=== PATIENT | female | born 1950 | race Caucasian/White ===

== ENCOUNTER 2016-10-09 11:00 | Emergency (ER) | payer MEDICARE, OTHER ==
[~2016-10-09] VITALS: Ht 175.3 cm; Wt 92.0 kg
[~2016-10-09 11:00] MED LIST: ALL220TA PO; LASI20TA PO; LEXA10TA PO; LIPI80TA16 PO; VITA100T65 PO; VITA400C28 PO
[2016-10-09 11:02] VITALS: BP 136/84; PULSE 82; RESP 14; TEMP 97.9; O2SAT 98
[2016-10-09] MEDS ORDERED: FISHCAP4 PO (16:18)
[2016-10-09] MEDS ORDERED: ASPI1TAB69 PO (16:18)
--- NOTE | 2016-10-09 16:23 | PD ---
HPI Chief Complaint: Abdominal Pain Time Seen by Provider: 16:23 Travel History International Travel<30 days: No Contact w/Intl Traveler<30days: No Traveled to known affect area: No History of Present Illness HPI 66-year-old female with history of HLD, spinal fusion presents to the ED for evaluation of 8 week history of right groin and hip pain. Gradual onset. Worsened over the last 3 days. Rated 4/10 at rest, 8/10 with ambulation. She denies anorexia, nausea, vomiting, fever, chills, changes in bowel habits, BRBPR. She can not identify no acute injury to the hip. States she is otherwise healthy. PFSH Past Medical History Hx Anticoagulant Therapy: No Arthritis: Yes Blood Disorders: No Cancer: No Cardiovascular Problems: No Chemotherapy: No Cerebrovascular Accident: No Diabetes: No Endocrine: No Genitourinary: No Immune Disorder: No Musculoskeletal: Yes Neurologic: Yes Psychiatric: No Reproductive: No Respiratory: No Past Surgical History Abdominal Surgery: Yes (1959? APPENDECTOMY) [facility]necologic [facility]: Yes [facility] Hysterectomy: Yes Oral Surgery: Yes (1963 TONSILECTOMY) Pacemaker: No Social History Alcohol Use: Yes (DAILY WINE) Tobacco Use: No Substance Use: No Allergies-Medications (Allergen,Severity, Reaction): Coded Allergies: Penicillin (Verified Allergy, Severe, HIVES, 10/09/16) Codeine (Verified Allergy, Mild, NAUSEA AND VOMITING, 10/09/16) Reported Meds & Prescriptions Reported Meds & Active Scripts Active Lortab (Hydrocodone-Acetaminophen) 5-325 Mg Tab 1 Tab PO Q6H PRN Ibuprofen 600 Mg Tab 600 Mg PO TID Reported Aspirin 81 Mg Tabdr 81 Mg PO DAILY Fish Oil + D3 (Fish Oil-Cholecalciferol) 1,200-1,000 Mg-Unit Cap 1 Cap PO DAILY Vitamin D (Cholecalciferol) 400 Unit Tab 400 Unit PO Lexapro (Escitalopram Oxalate) 10 Mg Tab 10 Mg PO DAILY Lipitor (Atorvastatin Calcium) 80 Mg Tab 80 Mg PO HS Review of Systems Except as stated in HPI: all other systems reviewed are Neg Physical Exam Narrative GENERAL: Well-nourished, well-developed white female in no acute distress.. SKIN: Warm and dry. HEAD: Normocephalic. EYES: No scleral icterus. No injection or drainage. NECK: Supple, trachea midline. No JVD or lymphadenopathy. CARDIOVASCULAR: Regular rate and rhythm without murmurs, gallops, or rubs. RESPIRATORY: Breath sounds clear and equal bilaterally. No accessory muscle use. GASTROINTESTINAL: Abdomen soft, non-tender, nondistended. Active bowel sounds. No suprapubic tenderness. MUSCULOSKELETAL: No cyanosis, or edema. Mild tenderness to palpation over the lateral aspect of the hip and anterior aspect of the groin. BACK: Nontender without obvious deformity. No CVA tenderness. Data Data Last Documented VS Vital Signs Date Time Temp Pulse Resp B/P Pulse Ox O2 Delivery O2 Flow Rate FiO2 10/09/16 18:17 20 10/09/16 11:02 97.9 82 136/84 98 Room Air Orders Hip, Uni(Ap&Lat) W Ap Pelvis (10/09/16 16:36) Ketorolac Inj (Toradol Inj) (10/09/16 16:45) Ct Abd/Pel W/O Iv Contrast (10/09/16 17:35) MDM Medical Decision Making Medical Screen Exam Complete: Yes Emergency Medical Condition: Yes Differential Diagnosis Osteoarthritis versus hip fracture versus inguinal hernia versus other Narrative Course 66-year-old female with history of HLD, spinal fusion presents to the ED for evaluation of 8 week history of right groin and hip pain. Gradual onset. Worsened over the last 3 days. Rated 4/10 at rest, 8/10 with ambulation. She denies anorexia, nausea, vomiting, fever, chills, changes in bowel habits, BRBPR. Vitals reviewed. Physical exam reveals mild tenderness of the anterior lateral aspect of the hip and the right groin. The abdominal exam is benign. I suspect this may be osteoarthritis. Patient was administered IM Toradol. X- ray of the hip reveals no acute findings. CT of the abdomen and pelvis reveals fat containing abdominal wall hernia in the right paramedian pelvis. I discussed the results of the workup with the patient. I advised her to consider utilizing an abdominal support, available [id number], follow-up with her primary care provider. She was provided with a copy of her CT report. She was provided a short course of pain medications. She indicated understanding of the instructions. She is amenable to plan of care. She is stable and discharged home. Diagnosis Primary Impression: Hernia of anterior abdominal wall Referrals: Primary Care Physician Patient Instructions: General Instructions, Inguinal Hernia (ED) Additional Instructions: Rest, hydrate. Consider using a hernia belt/abdominal support belt, available [id number]. Take pain medication as prescribed. Follow-up with your primary care provider. Return to the ED for any urgent or emergent medical condition. Med/Other Pt SpecificInfo: Prescription(s) given Scripts Hydrocodone-Acetaminophen (Lortab)5-325 Mg Tab1 Tab PO Q6H PRN (PAIN) #10 TAB Ref 0 Prov:Joo Liz MD 10/09/16 Ibuprofen 600 Mg Wex287 Mg PO TID #15 TAB Ref 0 Prov:Nicko Hayward MD 10/09/16 Disposition: 01 DISCHARGE HOME Condition: Stable Michelle Fritz Oct 09, 2016 16:23
[2016-10-09] MEDS ORDERED: KETOROLAC TROMETHAMINE 60 MG/2 ML (IM) VIAL IM ONE (16:45)
--- NOTE | 2016-10-09 17:26 | RADRPT ---
EXAM DATE/TIME: 10/09/2016 16:59 [facility] COMPARISON: No previous studies available for comparison. INDICATIONS : Right hip pain for three days. MEDICAL HISTORY : None. SURGICAL HISTORY : Fusion, lumbar. ENCOUNTER: Initial ACUITY: 3 days PAIN SCORE: 10/10 LOCATION: Right hip. FINDINGS: Examination of the right hip was performed with AP Pelvis. The primary and secondary trabecular mai betty of the femoral neck is intact. The hip joint is of normal width without significant sclerosis or bony hypertrophy. The acetabulum is grossly intact. CONCLUSION: 1. No acute findings. Fusion lower lumbar spine. Jaxon Palomino MD on October 09, 2016 at 17:23 Board Certified Radiologist. This report was verified electronically.
--- NOTE | 2016-10-09 18:16 | RADRPT ---
EXAM DATE/TIME: 10/09/2016 17:51 [facility] COMPARISON: No previous studies available for comparison. INDICATIONS : RLQ abdominal/groin pain. ORAL CONTRAST: No oral contrast ingested. RADIATION DOSE: 18.69 CTDIvol (mGy) MEDICAL HISTORY : Hypertension. SURGICAL HISTORY : None. ENCOUNTER: Initial ACUITY: 4 - 6 months PAIN SCALE: 6/10 LOCATION: Right lower quadrant TECHNIQUE: Volumetric scanning of the abdomen and pelvis was performed. Using automated exposure control and ad justment of the mA and/or kV according to patient size, radiation dose was kept as low as reasonably achievable to obtain optimal diagnostic quality images. FINDINGS: LOWER LUNGS: The visualized lower lungs are clear. LIVER: Homogeneous density without lesion. There is no dilation of the biliary tree. No calcified gallston es. SPLEEN: Normal size without lesion. PANCREAS: Within normal limits. KIDNEYS: Normal in size and shape. There is no mass, stone, or hydronephrosis. ADRENAL GLANDS: Within normal limits. VASCULAR: There is no aortic aneurysm. BOWEL/MESENTERY: The stomach, small bowel, and colon demonstrate no acute abnormality. There is no free intraperitone al air or fluid. ABDOMINAL WALL: There is no abdominal wall defect in the right paramedian low anterior pelvic wall with a slightly gr eater than 3 cm diameter defect in the rectus allowing peritoneal fat herniate into the subcutaneous tissues. There is no evidence of incarceration. A tiny fat containing umbilical hernia is present. A miniscule upper abdominal midline hernia defect is also present containing fat. This is just below th e edge of the left lobe of the liver. RETROPERITONEUM: There is no lymphadenopathy. BLADDER: No wall thickening or mass. REPRODUCTIVE: Within normal limits. INGUINAL: There is no lymphadenopathy or hernia. MUSCULOSKELETAL: Previous lumbar spine hardware fusion. Moderate degenerative changes present. CONCLUSION: Abdominal wall hernias, largest in the right paramedian pelvis as described. Kin Boyd MD on October 09, 2016 at 18:10 Board Certified Radiologist. This report was verified electronically.
[2016-10-09 18:17] VITALS: RESP 20
[2016-10-09] MEDS ORDERED: IBUP-232 PO (18:49)
[2016-10-09] MEDS ORDERED: HYDR-3533 PO ×2 (18:50→18:58)
[2016-10-09 19:17] VITALS: BP 145/77
== END 2016-10-09 19:10 | disposition home or self-care (01) ==
LOC: NETRI 11:00
DX: K43.9 Ventral hernia without obstruction or gangrene (principal); M25.551 Pain in right hip
CPT/HCPCS: 73502; 74176; 96372; 99284; J1885

== ENCOUNTER 2016-12-07 08:06 | Inpatient (IN) | payer MEDICARE ==
[~2016-12-07] VITALS: Ht 175.3 cm; Wt 102.1 kg
[~2016-12-07 08:06] MED LIST changes: -FISH1000 PO; -FISHCAP4 PO; -HYDR-3366 PO; -HYDR-3533 PO; -IBUP-232 PO; -LEXA10TA PO; -LEXA20TA PO; -LIPI80TA16 PO; -SIMV80TA PO; -VITA10003 PO; -VITA400C28 PO; -WALKER/ADULT/FO1 MIS; -XARE10TA PO
[2016-12-07] MEDS ORDERED: LEXA20TA PO (08:48)
[2016-12-07] MEDS ORDERED: SIMV80TA PO (08:48)
[2016-12-07] MEDS ORDERED: FISH1000 PO (08:50)
[2016-12-07] MEDS ORDERED: VITA10003 PO (08:50)
[2016-12-14] MEDS ORDERED: SODIUM CHLOR 0.9% 250 ML INJ 250 ML ONE (05:42)
[2016-12-14] MEDS ORDERED: LACTATED RINGER'S 1000 ML INJ 1,000 ML ONE (05:42)
[2016-12-14] MEDS ORDERED: VANCOMYCIN HCL 1000 MG VIAL ONE (05:42)
[2016-12-14] MEDS: LACTATED RINGER'S 1000 ML IV SCH (05:45)
[2016-12-14] MEDS ORDERED: METOPROLOL TARTRATE 25 MG TAB PO PRN (05:45)
[2016-12-14] MEDS ORDERED: SODIUM CHLORID 0.9% 500 ML IV SCH (05:45)
[2016-12-14] MEDS ORDERED: INSULIN HUMAN REGULAR 1,000 UNITS/10 ML VIAL SQ PRN (05:45)
[2016-12-14 05:52] VITALS: BP 132/46; PULSE 79; RESP 16; TEMP 97.9; O2SAT 95
[2016-12-14] MEDS ORDERED: VANCOMYCIN 1000 MG/NS 250 ML (for <70 kg) IV SCH ×2 (06:00)
[2016-12-14] MEDS ORDERED: SODIUM CHLORIDE 0.9% IV SCH (06:00)
[2016-12-14] MEDS: CHLORHEXIDINE GLUCONATE 4% SOLN 120 ML BTL TOP SCH (06:00)
[2016-12-14] MEDS ORDERED: TRANEXAMIC ACID IV SCH (06:00)
[2016-12-14] MEDS ORDERED: EXPAREL PERI-ARTICULAR INJECTION (TOTAL VOL. 60 ML) P-ARTICULR SCH ×2 (06:00)
[2016-12-14] MEDS ORDERED: CLINDAMYCIN 600 MG/NS 100 ML IV SCH ×2 (06:15)
[2016-12-14] MEDS ORDERED: ceFAZolin 2 GM PREMIX 50 ML ONE (06:22)
[2016-12-14] MEDS ORDERED: GENTAMICIN SULFATE 80 MG/2 ML VIAL ONE (06:22)
[2016-12-14] MEDS ORDERED: ACETAMINOPHEN 1000 MG/100 ML VIAL IV ONE (06:48)
[2016-12-14] MEDS ORDERED: FAMOTIDINE 20 MG/2 ML VIAL ONE (06:48)
[2016-12-14] MEDS ORDERED: MIDAZOLAM HCL 2 MG/2 ML VIAL ONE (06:49)
[2016-12-14] MEDS ORDERED: fentaNYL CITRATE 250 MCG/5 ML AMP ONE (06:49)
[2016-12-14] MEDS ORDERED: DEXAMETHASONE SOD PHOS 4 MG/ML VIAL ONE (06:49)
[2016-12-14] MEDS ORDERED: HYDROmorphone HCL PF 2 MG/ML VIAL ONE (06:49)
[2016-12-14] MEDS ORDERED: WALKER/ADULT/FO1 MIS (07:21)
[2016-12-14] MEDS ORDERED: XARE10TA PO (07:21)
[2016-12-14] MEDS ORDERED: HYDR-3366 PO (07:21)
--- NOTE | 2016-12-14 07:22 | HHI.FF ---
Face to Face Verification Diagnosis: (1) S/P total hip arthroplasty Physical Therapy Gait training Hip: Total hip, Protocol: Right, Progress to weight bearing Right LE Weight Bearing: WB as tolerated Nursing Dressing Changes: Daily dressing change, Coverderm/Primapore (begin adding xeroform POD 10) I have seen patient Michelle Hogan on 12/14/16. My clinical findings support the need for the requested home health care services because: Ltd mobility - disease progression I certify that my clinical findings support that this patient is homebound because: Post-op weakness Oscar Downing Dec 14, 2016 07:22
--- NOTE | 2016-12-14 07:24 | PD.ORT.PN ---
Subjective Subjective Remarks POD 0 s/p right anterior LARISA Objective Vitals Vital Signs Date Time Temp Pulse Resp B/P Pulse Ox O2 Delivery O2 Flow Rate FiO2 12/14/16 05:52 97.9 79 16 132/46 95 Objective Remarks RLE: dressings clean and dry. intact. + drain Assessment & Plan Assessment and Plan 1) Right Anterior LARISA - POD 0 -WBAT -dressing change and DC drain POD 2 -CM for HHC -DVT prophylaxis with lovenox and DC with xarelto -RX on chart -plan for DC home with HHC on Sat/Sat depending on patient progress -f/u with [facility] or [facility] in 2 weeks Oscar Downing Dec 14, 2016 07:24
--- NOTE | 2016-12-14 09:28 | PD.OP ---
cc: Eber Loomis MD Operative Report Date of Surgery: Dec 14, 2016 Preoperative Diagnosis: Severe right hip osteoarthritis Postoperative Diagnosis: Same Procedure: Right total hip arthroplasty Anesthesia: Gen. Surgeon: Eber Loomis Regional Account Manager(s): SIMON Berg PA-C The surgical procedure was assisted by my physician under water assistant. My P.A. presence was necessary throughout this case for the manipulation and positioning of the surgical extremity. My P.A. was assisting me throughout the duration of this procedure. The skill set of a physician under water assistant was medically necessary to complete this procedure. During the surgical case the ophthalmology surgical technician was working at the back table and the physician under water assistant was directly assisting me. Operation and Findings: PLAN OF ACTIVITY Weight bear as tolerated. DRAINS: 7-mm GISELA drain. IMPLANTS USED DePuy Corail size 16 high offset stem with a size [52] [place] Gription cup, Altryx +4 polyethylene liner and a [36+5] ceramic Biolox ceramic head. DETAILS OF PROCEDURE: This patient has a long history of hip pain. Patient was found to have severe osteoarthritis. The patient had radiographic evidence of joint space narrowing with [id number] arthritis and osteophytes around the acetabulum as well as the femoral head. There was also some cystic changes. The patient failed conservative treatment with pain medications, anti-inflammatories, physical therapy, assistive devices including a cane, as well as therapeutic injection of the hip. Patient's hip arthritis was limiting his ability to ambulate and perform activities of daily living. The patient wished to proceed with surgery and informed consent was obtained. Operative site was marked. I discussed both posterior approach and anterior approach with the patient and decision was made for anterior approach. Patient was brought to OR and placed on OR table. IV sedation and general anesthesia was administered by anesthesiologist. Patient positioned on a Christine table and was given IV antibiotics. Time-out procedure was performed. The hip and thigh were prepped with alcohol followed by Hibiclens. The thigh was draped in the usual sterile fashion. Clean Air Suite was used for this procedure. The procedure began with a 5-inch incision over the anterolateral thigh. Subcutaneous tissue was dissected with Bovie. The fascia over the tensa fasciae latae was incised. Care was taken to avoid injury to the lateral femoral cutaneous nerve. The tensor muscle was retracted laterally. Sartorius was retracted medially. Retractors were now placed. The reflected head of the rectus is now elevated. A capsulotomy was performed over the anterior head capsule. Sutures were placed to help retract the capsule. At this point the femoral head and neck were identified. With soft tissue protected, oscillating saw was used to make a cut through the femoral neck, the femoral head was now removed. At this point attention was turned to preparation of the acetabulum. The labrum was excised. The acetabulum was sequentially reamed up to size [52]. A [place] cup was now placed. Fluoroscopy was used to aid in identification of appropriate version. Cup was fully impacted and found to have excellent fit. . At this point the hip was externally rotated. A hook was placed around the proximal femur. The capsule was released off the lateral and medial femur. The hip was now extended and adducted. Retractors were placed around the proximal femur to allow for exposure. A box osteotome was used to remove the lateral cortex of the femoral neck. A broach was used to help lateralize the prosthesis. Canal finder was used to create a path down the canal. Next, the canal was sequentially broached up to size [16]. This was found to be an excellent fit. Calcar planer was placed. A standard head and neck were placed, and the hip was reduced. Initially her leg was found to be short with diminished offset. A high offset neck with a +4 trial liner were now placed. Hip was reduced. The hip was found to have excellent stability with good range of motion. The leg lengths were measured under fluoroscopy and found to be equal. Offset also appeared to be equal. Trial broach was removed. Hole eliminator was now placed. The liner was now impacted into the cup. The Corail stem was opened. Stem was fully impacted into the proximal femur in appropriate version. The femoral head was placed. The hip was again reduced. Fluoroscopy confirmed excellent alignment of prosthesis. The wound was thoroughly irrigated and capsule was closed with #1 Vicryl. The fascia over the tensor fasciae muscle was closed with #1 Vicryl, subcutaneous tissue was closed with 3-0 Vicryl and the skin was closed with fifi and Dermabond skin closure. The capsule layers were injected with a mixture of saline and bupivicaine. Dressings were applied. The patient was transferred to Recovery Room in stable condition. Eber Loomis MD Dec 14, 2016 09:27
[2016-12-14] MEDS ORDERED: NALOXONE HCL 0.4 MG/ML AMP IV PRN (09:30)
[2016-12-14] MEDS ORDERED: MORPHINE SULFATE 4 MG/ML INJ IV PUSH PRN (09:30)
[2016-12-14] MEDS ORDERED: SODIUM CHLORIDE 0.9% FLUSH 5 ML FLUSH IVF PRN (09:30)
[2016-12-14] MEDS ORDERED: ONDANSETRON HCL 4 MG/2 ML VIAL IVP PRN (09:30)
[2016-12-14] MEDS ORDERED: Post-op Orders (for Pharmacy) MISC XX ONE (09:30)
[2016-12-14] MEDS ORDERED: TRANEXAMIC ACID INJ 1,000 MG in SODIUM CHLORIDE 0.9% INJ 100 ML IV ONE (10:00)
[2016-12-14] MEDS ORDERED: *morphine SULFATE 8 MG/ML PERIprocedure ONLY ONE ×2 (10:11→10:27)
[2016-12-14] MEDS: KETOROLAC TROMETHAMINE 30 MG/ML (IVP) VIAL IV PUSH SCH ×2 (10:15→21:13)
[2016-12-14] MEDS: LACTATED RINGER'S 1000 ML INJ 1,000 ML IV SCH ×2 (10:30→21:19)
--- NOTE | 2016-12-14 11:08 | RADRPT ---
EXAM DATE/TIME: 12/14/2016 10:05 [facility] COMPARISON: HIP RIGHT (AP&LAT 2/3VWS) W AP PELVIS, October 09, 2016, 16:59. INDICATIONS : Evaluate right hip post op total hip replacement. MEDICAL HISTORY : None. SURGICAL HISTORY : Lumbar, total right hip replacement. ENCOUNTER: Initial ACUITY: 1 day PAIN SCORE: 0/10 LOCATION: Right Pelvis, Hip FINDINGS: Patient is immediately postop right bipolar hip arthroplasty. Alignment is normal. No fracture or oth er acute complication demonstrated. CONCLUSION: Expected radiographic appearance after right bipolar hip arthroplasty. Kin Johnson MD on December 14, 2016 at 11:06 Board Certified Radiologist. This report was verified electronically.
[2016-12-14] MEDS ORDERED: NEOSTIGMINE 3 MG/3 ML SYR IV ONE (12:00)
[2016-12-14] MEDS ORDERED: PROPOFOL 200 MG/20 ML AMP IV ONE (12:00)
[2016-12-14] MEDS ORDERED: ONDANSETRON HCL 4 MG/2 ML VIAL IV PUSH ONE (12:00)
[2016-12-14] MEDS ORDERED: ePHEDrine/NS 25 MG/5 ML SYR IV ONE (12:00)
[2016-12-14] MEDS ORDERED: DO NOT ADM ANY ANTICOAGULANT DRUGS XX PRN (12:15)
[2016-12-14 14:50] VITALS: BP 117/76; PULSE 96; RESP 16; TEMP 96.8; O2SAT 94
--- NOTE | 2016-12-14 15:40 | RADRPT ---
EXAM DATE/TIME: 12/14/2016 07:27 [facility] COMPARISON: No previous studies available for comparison. INDICATIONS : Total right hip placement. MEDICAL HISTORY : None. SURGICAL HISTORY : Fusion, lumbar. ENCOUNTER: Initial ACUITY: 1 day PAIN SCORE: Non-responsive. LOCATION: Right Hip. FINDINGS: 2 views in the operating room show right bipolar hip arthroplasty that appears intact and normally al igned. No acute abnormality demonstrated. CONCLUSION: Expected radiographic appearance of the right hip arthroplasty. Kin Johnson MD on December 14, 2016 at 15:37 Board Certified Radiologist. This report was verified electronically.
[2016-12-14] MEDS: ACETAMINOPHEN/HYDROcodone 325 MG/10 MG TAB PO PRN (17:33)
[2016-12-14] MEDS: VANCOMYCIN INJ 1,000 MG in SODIUM CHLOR 0.9% 250 ML INJ 250 ML IV SCH (17:33)
[2016-12-14 18:25] VITALS: O2SAT 94
[2016-12-14 20:00] VITALS: BP 121/72; PULSE 96; RESP 16; TEMP 96.3; O2SAT 98
[2016-12-14] MEDS: SODIUM CHLORIDE 0.9% FLUSH 5 ML FLUSH IVF SCH (21:00)
[2016-12-14] MEDS: PRAVASTATIN SOD 80 MG TAB PO SCH (21:12)
[2016-12-14] MEDS: ESCITALOPRAM OXALATE 20 MG TAB PO SCH (21:12)
[2016-12-15] VITALS: BP 105/64; PULSE 89; RESP 16; TEMP 96.5; O2SAT 98
[2016-12-15 04:00] VITALS: BP 100/64; PULSE 83; RESP 16; TEMP 96.6; O2SAT 98
[2016-12-15] MEDS: LACTATED RINGER'S 1000 ML IV SCH (04:37)
[2016-12-15] MEDS: VANCOMYCIN INJ 1,000 MG in SODIUM CHLOR 0.9% 250 ML INJ 250 ML IV SCH (04:39)
[2016-12-15 05:39] LABS: REVIEW FLAG FINAL
[2016-12-15] MEDS: CHLORHEXIDINE GLUCONATE 4% SOLN 120 ML BTL TOP SCH (06:00)
--- NOTE | 2016-12-15 07:23 | PD.ORT.PN ---
Subjective Subjective Remarks Right hip pain. Moderately controlled with PO meds. No new radiating leg pain. Planning on going home w [facility] tomorrow. No other concerns. No CP or SOB. Objective Vitals Vital Signs Date Time Temp Pulse Resp B/P Pulse Ox O2 Delivery O2 Flow Rate FiO2 12/15/16 04:00 96.6 83 16 100/64 98 12/15/16 00:00 96.5 89 16 105/64 98 12/14/16 20:00 96.3 96 16 121/72 98 12/14/16 18:25 94 Nasal Cannula 2.00 12/14/16 14:50 96.8 96 16 117/76 94 12/14/16 13:30 105 14 104/62 95 Nasal Cannula 2 12/14/16 12:30 100 14 113/67 95 Nasal Cannula 2 12/14/16 11:30 102 16 107/64 94 Nasal Cannula 2 12/14/16 10:45 98.4 94 12 110/71 94 Nasal Cannula 2 12/14/16 10:30 93 10 107/60 94 Nasal Cannula 2.5 12/14/16 10:15 92 12 128/74 95 Nasal Cannula 2.5 12/14/16 10:00 85 12 135/74 95 Nasal Cannula 2.5 12/14/16 09:46 98.5 124 14 184/105 95 Simple Mask 5 I/O 12/14/16 12/14/16 12/14/16 12/15/16 12/15/16 12/15/16 07:00 15:00 23:00 07:00 15:00 23:00 Intake Total 1000 ml 480 ml Output Total 630 ml 690 ml Balance 370 ml -210 ml Intake Oral 480 ml IV Total 300 ml Other 700 ml Output Urine Total 220 ml 600 ml Drainage Total 110 ml 90 ml Estimated Blood Loss 300 ml # Bowel Movements 0 Result Diagram: 12/15/16 0431 Imaging Last 24 hours Impressions Hip and Pelvis X-Ray 12/14/16 0919 Signed Impressions: Service Date/Time: Wednesday, December 14, 2016 10:05 - CONCLUSION: Expected radiographic appearance after right bipolar hip arthroplasty. Kin Johnson MD Objective Remarks Laying in bed comfortably NAD VSS RLE Dressing c/d/i, mild swelling, no erythema thigh and calf supple, neg homans +motor at, +sens, +nvi Seen and evaluated by Dr. Ngoc Warren Assessment & Plan Ortho Post Op Day #: 1 Problem List: Assessment and Plan 1) Right Anterior LARISA - POD 1 - Ortho stable -WBAT -dressing change and DC drain POD 2 -CM for HHC -DVT prophylaxis with lovenox and DC with xarelto -RX on chart -plan for DC home with HHC tomorrow if stable. -f/u with [facility] or [facility] in 2 weeks Miri Dominguez Dec 15, 2016 07:23
[2016-12-15 07:38] VITALS: BP 109/57; PULSE 74; RESP 17; TEMP 98.2; O2SAT 100
[2016-12-15] MEDS: ENOXAPARIN SODIUM 40 MG/0.4 ML SYRINGE SQ SCH (08:18)
[2016-12-15] MEDS: KETOROLAC TROMETHAMINE 30 MG/ML (IVP) VIAL IV PUSH SCH ×2 (08:19→21:55)
[2016-12-15] MEDS: ACETAMINOPHEN/HYDROcodone 325 MG/10 MG TAB PO PRN ×4 (09:05→21:55)
[2016-12-15 10:08] VITALS: O2SAT 97
[2016-12-15 11:41] VITALS: BP 100/56; PULSE 75; RESP 17; TEMP 96.6; O2SAT 98
[2016-12-15 20:00] VITALS: BP 119/61; PULSE 78; RESP 18; TEMP 97.5; O2SAT 98
[2016-12-15] MEDS: DOCUSATE SODIUM 100 MG CAP PO SCH (21:55)
[2016-12-15] MEDS: ESCITALOPRAM OXALATE 20 MG TAB PO SCH (21:56)
[2016-12-15] MEDS: PRAVASTATIN SOD 80 MG TAB PO SCH (21:56)
[2016-12-15] MEDS: SODIUM CHLORIDE 0.9% FLUSH 5 ML FLUSH IVF SCH (21:56)
[2016-12-15] MEDS: LACTATED RINGER'S 1000 ML INJ 1,000 ML IV SCH (21:56)
[2016-12-16] VITALS: BP 106/57; PULSE 79; RESP 18; TEMP 97.9; O2SAT 96
[2016-12-16 04:00] VITALS: BP 108/61; PULSE 78; RESP 18; TEMP 97.9; O2SAT 95
[2016-12-16] MEDS: LACTATED RINGER'S 1000 ML IV SCH (05:45)
[2016-12-16] MEDS: CHLORHEXIDINE GLUCONATE 4% SOLN 120 ML BTL TOP SCH (06:00)
[2016-12-16] MEDS: ACETAMINOPHEN/HYDROcodone 325 MG/10 MG TAB PO PRN ×3 (06:47→13:20)
[2016-12-16 08:00] VITALS: BP 102/62; PULSE 87; RESP 18; TEMP 97.1; O2SAT 95
[2016-12-16 08:39] VITALS: O2SAT 96
--- NOTE | 2016-12-16 08:42 | PD.ORT.PN ---
Subjective Subjective Remarks Mild to mderate right hip pain. Moderately controlled with PO meds. No new radiating leg pain. No problems overnight. Questions about driving, activity, etc. Planning on d/c home w hhc today. No CP or SOB. Objective Vitals Vital Signs Date Time Temp Pulse Resp B/P Pulse Ox O2 Delivery O2 Flow Rate FiO2 12/16/16 08:39 96 21 12/16/16 04:00 97.9 78 18 108/61 95 12/16/16 00:00 97.9 79 18 106/57 96 12/15/16 20:00 97.5 78 18 119/61 98 12/15/16 11:41 96.6 75 17 100/56 98 12/15/16 10:08 97 Nasal Cannula 2.00 12/15/16 10:05 18 12/15/16 09:30 18 I/O 12/15/16 12/15/16 12/15/16 12/16/16 12/16/16 12/16/16 07:00 15:00 23:00 07:00 15:00 23:00 Intake Total 1210 ml 480 ml 150 ml Output Total 690 ml 150 ml 1070 ml 30 ml Balance 520 ml -150 ml -590 ml 120 ml Intake Oral 1210 ml 480 ml 150 ml Output Urine Total 600 ml 1000 ml Drainage Total 90 ml 150 ml 70 ml 30 ml # Voids 3 0 # Bowel Movements 0 0 Result Diagram: 12/15/16 0431 Imaging Last 24 hours Impressions Hip and Pelvis X-Ray 12/14/16 0919 Signed Impressions: Service Date/Time: Wednesday, December 14, 2016 10:05 - CONCLUSION: Expected radiographic appearance after right bipolar hip arthroplasty. Kin Johnson MD Objective Remarks Laying in bed comfortably NAD VSS RLE Dressing c/d/i, mild swelling, no erythema thigh and calf supple, neg homans +motor at, +sens, +nvi Pt was seen and evaluated by Dr. Ngoc Warren Assessment & Plan Ortho Post Op Day #: 2 Problem List: Assessment and Plan 1) Right Anterior LARISA - POD 2 - Ortho stable. Ok to d/c home w hhc later today after PT. -PT - WBAT RLE. Walker as needed. -Drain to be dc'd. Dressing changes as instructed. -DVT prophylaxis with lovenox and DC with xarelto. RX on chart. -f/u with [facility] or [facility] in 2 weeks Miri Dominguez Dec 16, 2016 08:42
[2016-12-16] MEDS: ENOXAPARIN SODIUM 40 MG/0.4 ML SYRINGE SQ SCH (09:21)
[2016-12-16] MEDS: DOCUSATE SODIUM 100 MG CAP PO SCH (09:21)
[2016-12-16] MEDS: SODIUM CHLORIDE 0.9% FLUSH 5 ML FLUSH IVF SCH (09:25)
[2016-12-16] MEDS: LACTATED RINGER'S 1000 ML INJ 1,000 ML IV SCH (11:19)
[2016-12-16 12:00] VITALS: BP 99/64; PULSE 86; RESP 18; TEMP 96.1; O2SAT 97
--- NOTE | 2016-12-16 12:56 | HHI.DS ---
Discharge Summary Admission Date Dec 14, 2016 at 05:14 Discharge Date: Dec 16, 2016 Admitting Diagnosis Right hip OA Diagnosis: (1) S/P total hip arthroplasty Diagnosis: Principal Procedures Right total hip arthroplasty with anterior approach CBC/BMP: 12/15/16 0431 Significant Findings Laboratory Tests Test 12/15/16 04:31 Hemoglobin 10.1 GM/DL (11.6-15.3) Hematocrit 30.0 % (35.0-46.0) PE at Discharge Laying in bed comfortably NAD VSS RLE Dressing c/d/i, mild swelling, no erythema thigh and calf supple, neg homans +motor at, +sens, +nvi Pt was seen and evaluated by Dr[facility] Patient admitted on 12/14/2016 from outpatient basis for elective right total hip arthroplasty. She tolerated procedure well. She was admitted to [address] [place] [address]. She was out of bed on postop day 1. Daily dressing changes were initiated on postoperative day 2. She was out of bed with therapy, her pain is well- controlled, and she was hemodynamically stable. She is fit for discharge home with home health care. She'll remain weightbearing as tolerated. She'll keep her incision clean and dry. She will follow up with Dr. Loomis or his PA in 2 weeks Pt Condition on Discharge: Good Discharge Disposition: Disch w/ Home Health Serv Discharge Instructions Diet Instructions: As Tolerated, No Restrictions Activities You Can Perform: Weight Bearing as Leonides Follow up Referrals: Orthopedics - 12/28/16 @ [facility] with Eber Loomis MD SNF/RETIREMENT/ with [facility] New Medications: Hydrocodone-Acetaminophen (Mousie) 10-325 Mg Tab 1 TAB PO Q4H PRN PAIN #60 Ref 0 TAB Rivaroxaban (Xarelto) 10 Mg Tab 10 MG PO DAILY Blood Clot Prevention #14 Ref 0 TAB Walker/Adult/Folding (Walker/Adult/Folding) 1 Mis Mis 1 EA .ROUTE DIRECTED #1 Ref 0 EA Continued Medications: Cholecalciferol (Vitamin D-3) 1,000 Unit Tab Unknown Dose PO DAILY #30 Ref 0 TAB Escitalopram (Lexapro) 20 Mg Tab 20 MG PO HS #30 Ref 0 TAB [place]-3 Fatty Acids (Fish Oil) 1,000 Mg Cap 1 CAP PO DAILY Simvastatin (Simvastatin) 80 Mg Tab 80 MG PO HS Cholesterol Management #30 Ref 0 TAB Discontinued Medications: Aspirin (Aspirin) 81 Mg Tabdr 81 MG PO DAILY TAB Oscar Downing Dec 16, 2016 12:56
== END 2016-12-16 15:11 | disposition home health service (06) | DRG 470 ==
LOC: HSDI 12-14 05:14 → N06B 12-14 14:13
PROVIDERS: ADMIT Orthopaedic Surgery Orthopaedic Trauma; ATTEND Orthopaedic Surgery Orthopaedic Trauma
PROC: 0SR904A Replacement of Right Hip Joint with Ceramic on Polyethylene Synthetic Substitute, Uncemented, Open Approach (ICD-10-PCS; principal; 2016-12-14 06:52)
DX: M16.11 Unilateral primary osteoarthritis, right hip (principal)
CPT/HCPCS: 73501; 73502; 76000; 85014; 85018; 86850; 86900; 86901; C1776; C9290; J0131; J0690; J1100; J1170; J1580; J1650; J1885; J2250; J2270; J2405; J2710; J3010; J3370; J7050; J7120

== ENCOUNTER → 2016-12-07 | Outpatient (CLI) | payer MEDICARE ==
[~2016-12-07] MED LIST changes: -ALL220TA PO; +ASPI1TAB69 PO; +FISH1000 PO; +FISHCAP4 PO; +HYDR-3366 PO; +HYDR-3533 PO; +IBUP-232 PO; -LASI20TA PO; +LEXA20TA PO; +SIMV80TA PO; +VITA10003 PO; -VITA100T65 PO; +WALKER/ADULT/FO1 MIS; +XARE10TA PO
[2016-12-07 08:47] LABS: AUTOMATED NEUTROPHIL # 2.9 TH/MM3 (1.8-7.7); BASOPHIL % 0.9 % (0.0-2.0); EOSINOPHIL # 0.1 TH/MM3 (0-0.4); EOSINOPHIL % 2.1 % (0.0-4.0); HEMATOCRIT 39.4 % (35.0-46.0); HEMO FLAGS DIFF FINAL; LYMPHOCYTE # 1.9 TH/MM3 (1.0-4.8); MEAN CELL VOLUME 96.6 FL (80.0-100.0); MEAN CORPUSCULAR HEMOGLOBIN 32.3 PG (27.0-34.0); MEAN CORPUSCULAR HGB CONC 33.4 % (32.0-36.0); MONO % 10.6 % (0.0-8.0); NEUT % 52.4 % (16.0-70.0); PLATELET COUNT 208 TH/MM3 (150-450); RED BLOOD COUNT 4.08 MIL/MM3 (4.00-5.30); RED CELL DISTRIBUTION WIDTH 13.7 % (11.6-17.2); WHITE BLOOD COUNT 5.6 TH/MM3 (4.0-11.0)
[2016-12-07 08:57] LABS: APTT (PATIENT) 22.8 SEC (24.3-30.1); PROTHROMBIN TIME - PATIENT 10.6 SEC (9.8-11.6)
[2016-12-07 09:15] LABS: BICARBONATE 26.5 MEQ/L (21.0-32.0); POTASSIUM 4.1 MEQ/L (3.5-5.1)
[2016-12-07 09:45] LABS: BACTERIA, URINE FEW /hpf; BLOOD, URINE NEG (NEG); CALCIUM OXALATE CRYSTALS,URINE OCC /hpf; COMMENT (UR) CULT NOT INDICATED; CULTURE IF INDICATED CULT NOT INDICATED; GLUCOSE,URINE NEG (NEG); HYALINE CAST, URINE 4 /lpf (RARE); KETONE, URINE NEG (NEG); MUCUS URINE FEW /lpf (OCC); NITRITE,URINE NEG (NEG); URINE COLOR YELLOW (YELLW/STRAW)
--- NOTE | 2016-12-07 09:57 | RADRPT ---
EXAM DATE/TIME: 12/07/2016 09:40 [facility] COMPARISON: No previous studies available for comparison. INDICATIONS : Evaluate for penumonia, pneumothorax, or communicable disease. Pre op for right total hip replacement . MEDICAL HISTORY : Hypertension. Arthritis. SURGICAL HISTORY : Appendectomy. Tonsillectomy. Hysterectomy. Cataract. Lumbar fusion. ENCOUNTER: Initial ACUITY: 1 day PAIN SCORE: 0/10 LOCATION: chest FINDINGS: PA and lateral views of the chest demonstrate minimal scarring right upper lobe. Small nodule left up per lobe. The cardiomediastinal contours are unremarkable. Osseous structures are intact. CONCLUSION: 1. No evidence for infiltrate. 2. Small nodules and probable scarring right upper lobe. CT chest recommended. Darin Al MD on December 07, 2016 at 9:54 Board Certified Radiologist. This report was verified electronically.
--- NOTE | 2016-12-08 19:25 | EKG ---
Date Performed: 12/07/2016 Time Performed: 08:34:50 PTAGE: 66 years EKG: Sinus rhythm RIGHT BUNDLE BRANCH BLOCK LEFT ANTERIOR FASCICULAR BLOCK INFERIOR MYOCARDIAL INFARCTION, PROBABLY OL D Since previous tracing, no significant change noted ABNORMAL ECG PREVIOUS TRACING : 09/07/2009 10.04 DOCTOR: Bennie Guevara Interpretating Date/Time 12/08/2016 19:23:46
== END ==
LOC: CPRE 08:02
PROVIDERS: ATTEND Orthopaedic Surgery Orthopaedic Trauma
DX: Z01.812 Encounter for preprocedural laboratory examination (principal); Z01.811 Encounter for preprocedural respiratory examination; Z01.810 Encounter for preprocedural cardiovascular examination; M79.609 Pain in unspecified limb; Z96.60 Presence of unspecified orthopedic joint implant; Z79.01 Long term (current) use of anticoagulants; I10 Essential (primary) hypertension; I45.10 Unspecified right bundle-branch block; I44.4 Left anterior fascicular block; R94.31 Abnormal electrocardiogram [ECG] [EKG]
CPT/HCPCS: 36415; 71020; 80048; 81001; 85025; 85610; 85730; 93005